=== PATIENT | male | born 1995 | race Hispanic/Latino ===

== ENCOUNTER 2020-12-27 18:09 | Emergency (ER) | payer OTHER ==
[~2020-12-27] VITALS: Ht 172.7 cm; Wt 140.6 kg
[2020-12-27] MEDS ORDERED: SODIUM CHLORIDE 0.9% 1000ML 1,000 ML IV STA (19:05)
[2020-12-27] MEDS ORDERED: KETOROLAC TROMETHAMINE 30 MG/ML VIAL IV STA (19:05)
[2020-12-27] MEDS ORDERED: KETOROLAC TROMETHAMINE 30 MG/ML VIAL ONE (19:27)
[2020-12-27] MEDS ORDERED: SODIUM CHLORIDE 0.9% 1000ML 1,000 ML ONE (19:27)
[2020-12-27] MEDS ORDERED: PEPCID20 MG PO (21:08)
[2020-12-27] MEDS ORDERED: DONNATAL/LIDOCAINE/MAALOX 30 ML SUSP PO ONE (21:15)
== END 2020-12-27 21:50 | disposition home or self-care (01) ==
LOC: FSED 18:17
DX: M54.50 Low back pain, unspecified (principal); K29.70 Gastritis, unspecified, without bleeding; R10.13 Epigastric pain; K76.0 Fatty (change of) liver, not elsewhere classified; I10 Essential (primary) hypertension
CPT/HCPCS: 74176; 80053; 81003; 85025; 99284; J1885; J7030